=== PATIENT | female | born 1970 | race African-American/Black ===

== ENCOUNTER 2024-11-20 15:17 | Emergency (ER) | payer MEDICAID ==
[~2024-11-20] VITALS: Ht 165.1 cm; Wt 73.0 kg
[2024-11-20 15:25] VITALS: O2SAT 98
[2024-11-20] MEDS: METOCLOPRAMIDE HCL 10MG/2ML VIAL IV ONE (15:39)
[2024-11-20] MEDS: KETOROLAC 15MG/ML VIAL IV ONE ×2 (15:39→16:59)
[2024-11-20] MEDS: SODIUM CHLORIDE 0.9% 1,000 ML IV ONE (15:39)
[2024-11-20] MEDS: DIPHENHYDRAMINE 50MG/ML VIAL IV ONE (15:40)
[2024-11-20 15:51] LABS: BASOPHILS % 0.7 % (0.0-2.0); EOSINOPHILS % 0.5 % (0.0-5.0); HEMATOCRIT. 42.4 % (36.0-48.0); HEMOGLOBIN. 13.6 g/dL (12.0-16.0); LYMPHOCYTES % 20.1 % (20.0-50.0); MEAN PLATELET VOLUME 8.3 fl (7.4-10.4); MONOCYTES % 3.8 % (2.0-8.0); NEUTROPHILS % 74.9 % (40.0-76.0); PLATELET 292 x1000/uL (130-400); RED BLOOD CELL COUNT 4.76 mill/uL (4.2-5.4); RED CELL DISTRIBUTION WIDTH 15.1 % (11.6-14.6)
[2024-11-20 16:03] LABS: CREATININE 0.8 mg/dL (0.6-1.0)
[2024-11-20 16:04] LABS: UREA NITROGEN BLOOD < 5 mg/dL (9-23)
[2024-11-20 16:05] LABS: ASPARTATE AMINOTRANSFERASE 41 IU/L (<34)
[2024-11-20 16:06] LABS: BILIRUBIN DIRECT < 0.1 mg/dL (<=3.0); BILIRUBIN TOTAL 0.4 mg/dL (0.1-1.0); PROTEIN TOTAL 8.2 g/dL (6.0-8.3)
[2024-11-20] MEDS: ACETAMINOPHEN 325MG TABLET PO ONE (16:59)
[2024-11-20] MEDS: SUMATRIPTAN SUCCINATE 25MG TABLET PO ONE (16:59)
[2024-11-20] MEDS ORDERED: IBUP-2030 MT (17:38)
[2024-11-20] MEDS ORDERED: IMIT25 MT (17:38)
[2024-11-20] MEDS ORDERED: METO-293 MT (17:38)
[2024-11-20 17:46] VITALS: BP 154/83; PULSE 91; RESP 16; TEMP 36.7; O2SAT 95
== END 2024-11-20 17:56 | disposition home or self-care (01) ==
LOC: ER 15:17 → CMPBEDREQ 11-21 11:53
DX: G43.909 Migraine, unspecified, not intractable, without status migrainosus (principal); Z79.899 Other long term (current) drug therapy
CPT/HCPCS: 80076; 80048; 83735; 85025; 36415; 70450; 96361; 96374; 96375; 99285; J1200; J1885; J2765; J7030; Z7610